=== PATIENT | female | born 1935 | race Caucasian/White ===

== ENCOUNTER 2017-01-31 11:03 | Emergency (ER) | payer MEDICARE ==
[~2017-01-31] VITALS: Ht 160 cm; Wt 43.1 kg
[2017-01-31 11:41] LABS: BASOPHIL % 0.4 % (0-2); PLATELET COUNT 241 x10^3mcL (130-400)
[2017-01-31 11:43] LABS: RED CELL DISTRIBUTION WIDTH 15.2 % (11.5-14.5)
[2017-01-31 11:52] LABS: CALCIUM 9.5 mg/dL (8.5-10.1); CARBON DIOXIDE 29.4 mmol/L (21-32); CHLORIDE SERUM 103 mmol/L (98-107); CREATININE SERUM 0.8 mg/dL (0.6-1.0); GLUCOSE SERUM 113 mg/dL (74-106); POTASSIUM SERUM 3.7 mmol/L (3.5-5.1); SODIUM SERUM 141 mmol/L (136-145)
[2017-01-31 11:57] LABS: ALBUMIN 4.2 g/dL (3.4-5.0); ALKALINE PHOSPHATASE 75 U/L (46-116); ALT/SGPT 17 U/L (14-59); AST/SGOT 24 U/L (15-37); BILIRUBIN TOTAL 0.52 mg/dL (0.20-1.00); TOTAL PROTEIN, SERUM 7.4 g/dL (6.4-8.2)
[2017-01-31] MEDS ORDERED: BONIVA150 M1 (12:42)
[2017-01-31] MEDS ORDERED: LIPI10 (12:43)
[2017-01-31 17:00] VITALS: BP 166/76
--- NOTE | 2017-01-31 18:10 | NUR ---
SOCIAL SERVICE NOTE/LATE ENTRY: RECEIVED REQUEST FROM ER MID-DAY FOR ASSISTANCE WITH TRANSFER TO AN ALTERNATE FACILITY. MADE ARRANGEMENTS FOR PT VIA ASSISTANCE FROM MY [facility] WHO AUTHORIZED FOR [facility]. PT WAS TRANSPORTED ALS ARRANGED THROUGH [facility], ER TO ER. NO FURTHER FOLLOW-UP NEEDED.
== END 2017-01-31 17:00 | disposition short-term general hospital (02) ==
LOC: ED 11:03
PROVIDERS: Emergency Medicine
DX: S72.001A Fracture of unspecified part of neck of right femur, initial encounter for closed fracture (principal); E78.00 Pure hypercholesterolemia, unspecified; M81.0 Age-related osteoporosis without current pathological fracture; Z98.890 Other specified postprocedural states; W01.0XXA Fall on same level from slipping, tripping and stumbling without subsequent striking against object, initial encounter; Y93.89 Activity, other specified; Y99.8 Other external cause status; Y92.89 Other specified places as the place of occurrence of the external cause
CPT/HCPCS: 83880; J2270; J2405